=== PATIENT | female | born 1945 | race Caucasian/White ===

== ENCOUNTER → 2019-04-16 10:20 | Outpatient (CLI) | payer MEDICARE, SELFPAY ==
[2019-04-16 10:53] LABS: International Normalized Ratio 3.2; Prothrombin Time (Protime)PT. 33.2 SECONDS (11.7-14.9)
== END ==
PROVIDERS: Family Provider Family Medicine; PCP Family Medicine; Referring Provider Family Medicine; Visit Provider Family Medicine
DX: Z51.81 Encounter for therapeutic drug level monitoring (principal); Z79.01 Long term (current) use of anticoagulants
CPT/HCPCS: 85610

== ENCOUNTER 2023-11-18 11:47 | Observation (INO) | payer MEDICARE, SELFPAY ==
[2023-11-18] VITALS (18 sets, daily range): BP systolic 135–169; BP diastolic 56–67; PULSE 57–77; RESP 10–61; TEMP 36.3–36.7; O2SAT 96–100; BMI 36.9; BMI 36.7
--- NOTE | 2023-11-18 12:02 | EDS_ITS ---
HPI History of Present Illness Chief Complaint: Chest Pain Informant: patient Onset/Context/Timing Onset: Weeks (2) Activity at onset: gradual Timing: Waxes and wanes Quality: Positive for Heaviness Location: Substernal, Right Parasternal, Left Parasternal, Right Chest and Left Chest Worsened By: Coughing Relieved By: Nothing Associated Symptoms: Positive for Cough; Negative for Nausea, Vomiting, Diaphoresis, Dyspnea, Fever, Lightheadedness, Acid Reflux or Palpitations Narrative Narrative: Patient presents with chest pain that has been waxing and waning over the past 2 weeks. Patient states it came on gradually. Patient describes it as a heaviness. Patient states that has been diffuse across her chest but is mainly over the substernal area. Patient states it is worse with coughing. Patient states nothing seems to help with it. Patient denies any sputum production. Patient denies any nausea or vomiting. Patient denies any shortness of breath or diaphoresis. Patient is on Coumadin for DVT. CVD Risk Factors: Positive for Hypertension and Diabetes; Negative for Hypercholesterolemia, Family History 1' </=55 or Smoking PE Risk Factors: Positive for Prior DVT or PE; Negative for Recent Travel/Surgery, Recent Immobilization, Cancer or OCP + Smoking + >/=35 PFSH PFS Medical History (Updated 11/18/23 @ 21:[address] Johnathon Hopkins MD) DVT (deep venous thrombosis) Diabetes mellitus type 1 M?ni?re's disease Home Medications ?Medication ?Instructions ?Recorded ?Last Taken ?Type aspirin 81 mg tablet,delayed 81 mg PO DAILY 11/18/23 11/18/23 History release (Adult Aspirin Regimen) betamethasone dipropionate 0.05 % 1 applic topical BID 11/18/23 11/17/23 History lotion gabapentin 300 mg capsule 300 mg PO Q12H 11/18/23 11/18/23 History glipizide 10 mg tablet, extended 10 mg PO DAILY 11/18/23 11/17/23 History release 24 hr pantoprazole 40 mg tablet,delayed 40 mg PO DAILY 11/18/23 11/17/23 History release simvastatin 40 mg tablet 40 mg PO QHS 11/18/23 11/17/23 History triamterene 37.5 0.5 tab PO DAILY 11/18/23 11/17/23 History mg-hydrochlorothiazide 25 mg tablet warfarin 1 mg tablet 2 mg PO MOWEFR 11/18/23 11/16/23 History warfarin 1 mg tablet (Jantoven) 1 mg PO SUTUTHSA 11/18/23 11/17/23 History Allergy/AdvReac Type Severity Reaction Status Date / Time No Known Allergies Allergy Verified 11/18/23 11:48 Family History Other CVA (cerebral vascular accident) Family History other Surgical History Hx of hysterectomy Social History Smoking Status: Never smoker ROS ROS ED Constitutional Constitutional ED: Denies chills or fever(s) Eyes Eyes: Denies blurry vision or change in vision ENT ENT ED: Denies rhinorrhea or sore throat Cardiovascular Cardiovascular: Reports chest pain; Denies palpitations Respiratory/Chest Respiratory/Chest: Reports cough; Denies dyspnea Gastrointestinal Gastrointestinal: Denies nausea or vomiting Genitourinary Genitourinary ED: Denies dysuria or hematuria Musculoskeletal Musculoskeletal: Denies back pain or neck pain Integumentary Denies abscess or rash Neurologic Neurologic: Denies headache(s) or weakness Allergic/Immunologic Allergic/Immunologic ED: Denies mouth swelling or urticaria EXAM Physical Exam Const Vital Signs: 11/18/23 11:48 11/18/23 13:23 11/18/23 13:26 Temperature 97.4 F L Temperature Source Temporal Pulse Rate 77 Respiratory Rate 18 Respiratory Effort Normal Non-Labored Blood Pressure 144/62 H Blood Pressure Mean 89 Pulse Ox 99 96 Oxygen Delivery Method Room Air Room Air 11/18/23 13:48 11/18/23 14:30 11/18/23 14:45 Temperature 97.9 F Temperature Source Temporal Pulse Rate 63 60 Respiratory Rate 61 H 16 Respiratory Effort Blood Pressure 144/60 H 135/62 H 155/66 H Blood Pressure Mean 88 83 90 Pulse Ox 97 99 Oxygen Delivery Method Room Air 11/18/23 15:15 11/18/23 15:30 11/18/23 15:45 Temperature Temperature Source Pulse Rate 61 60 59 L Respiratory Rate 15 11 L 13 Respiratory Effort Blood Pressure Blood Pressure Mean Pulse Ox 100 99 100 Oxygen Delivery Method 11/18/23 15:50 11/18/23 16:00 11/18/23 16:15 Temperature Temperature Source Pulse Rate 65 57 L 62 Respiratory Rate 12 10 L 16 Respiratory Effort Blood Pressure 151/61 H 148/59 H 141/56 H Blood Pressure Mean 88 81 79 Pulse Ox 98 98 96 Oxygen Delivery Method 11/18/23 16:30 11/18/23 16:45 11/18/23 17:00 Temperature Temperature Source Pulse Rate 66 Respiratory Rate 13 Respiratory Effort Blood Pressure 144/60 H 144/63 H 166/64 H Blood Pressure Mean 83 82 93 Pulse Ox 97 Oxygen Delivery Method 11/18/23 17:08 Temperature 98.1 F Temperature Source Pulse Rate 73 Respiratory Rate 15 Respiratory Effort Blood Pressure 166/64 H Blood Pressure Mean 98 Pulse Ox 97 Oxygen Delivery Method Positive well nourished and well developed General Appearance ED: well developed and NAD HEENT Reports moist mucous membranes Neck supple and no JVD Resp normal respiratory effort and clear to auscultation bilaterally Cardio regular rate and regular rhythm GI soft to palpation, non-tender and non-distended Extremity General Extremety ED: Yes edema; Negative for tenderness General Extremity: edema bilateral lower extremity Details: mild Neuro oriented x3, CN's II-XII intact bilaterally and no sensory deficits noted Sensorium / Orientation: awake and alert Motor Exam: strength 5/5 throughout Psych mental status grossly normal Heart Score History: Slightly/Non-Suspicious ECG: Nonspecific Repolarization Age: >/= 65 years Risk Factors: 1 or 2 Risk Factors Troponin: </= Normal Limit Score: 4 MDM MDM MDM Narrative Medical decision making narrative: Differential diagnosis includes cardiac dysrhythmia, cardiac ischemia, pneumonia, pneumothorax, electrolyte abnormality, GERD, musculoskeletal pain, and anxiety. EKG will be obtained to assess for cardiac dysrhythmia and cardiac ischemia. Chest x-ray will be obtained to assess for pneumonia and pneumothorax. CBC will be obtained to assess for leukocytosis and anemia. Basic metabolic profile will be obtained to assess for electrolyte abnormality and renal function. High-sensitivity troponin will be obtained to assess for cardiac ischemia. Urinalysis will be obtained to assess for urinary tract infe ction and hematuria. Lab Data Attestation: I reviewed the patient's lab results. Lab results narrative: CBC was reviewed and was within normal limits. Basic metabolic profile was reviewed. Potassium was slightly low at 3.2. The remainder is within normal limits. PT was INR and PTT were reviewed. Pro time was 26.8 and INR is 2.5. PTT was normal at 34.7. High-sensitivity troponin was reviewed and was normal at 8. 2-hour repeat high-sensitivity troponin was reviewed and was also normal at 8. Labs: Laboratory Results - last 24 hr 11/18/23 11/18/23 12:50 15:50 WBC 9.0 RBC 4.78 Hgb 14.1 Hct 43.9 MCV 91.8 MCH 29.5 MCHC 32.1 RDW Std Deviation 46.0 H RDW Coeff of Giancarlo 13.6 Plt Count 258 MPV 11.0 Immature Gran % (Auto) 0.800 Neut % (Auto) 64.6 Lymph % (Auto) 22.0 [place] % (Auto) 11.0 H Eos % (Auto) 0.9 Baso % (Auto) 0.7 Absolute Neuts (auto) 5.8 Absolute Lymphs (auto) 1.97 Nucleated RBC % 0 PT 26.8 H INR 2.5 APTT 34.7 Sodium 142 Potassium 3.2 L Chloride 103 Carbon Dioxide 33.0 H Anion Gap 6 BUN 15 Creatinine 0.80 Estim Creat Clear Calc 62.02 Est GFR (MDRD) Af Amer 90 Est GFR (MDRD) Non-Af 74 BUN/Creatinine Ratio 18.8 Glucose 95 Calcium 9.2 Troponin I High Sens 8 8 Radiography Chest X-Ray - ED: 1 View, Read by ED Physician, Read by Radiologist and No Acute Disease Diagnostic Testing: Clinical Impression(s) from Imaging Studies Chest X-Ray 11/18/23 12:45 IMPRESSION: No radiographic evidence of acute cardiopulmonary disease. Electronically Signed: Macey Daugherty MD at 13:07 EDT , EKG Initial EKG: Attestation: I personally reviewed and interpreted this EKG as follows: Interpretation: Sinus Bradycardia (59) and RBBB Comments: EKG was obtained. On my independent interpretation, it shows sinus bradycardia with a rate of 59. [place] interval was normal at 160 ms. QRS interval slightly prolonged at 144 ms. QTc interval was normal at 453 ms. [place] was normal. There is a right bundle branch block pattern noted. There are no acute ST or T wave changes noted. Prior EKG tracings: not available for review Prior: No Prior Management Discussion w/another healthcare provider: Hospitalist Treatment and Re-Evaluation :: Patient was given aspirin here. Patient was feeling better on reevaluation. Patient was advised of her findings. Patient was given a dose of oral potassium here. Patient has a HEART score of 4. I recommended admission to the hospital for observation for further evaluation. Patient is agreeable with this. Patient states she does not remember ever having a stress test in the past. Case was discussed with the hospitalist. He will admit the patient to his service for observation. Patient understood and was agreeable with the plan. All questions were answered. Discharge Plan Dx/Rx/DC Orders Clinical Impression: Chest pain of uncertain etiology, Hypertension, Hypokalemia Disposition Disposition: Acute Care Hospital [facility] Discharge Date/Time: 11/18/23 17:46
--- NOTE | 2023-11-18 12:44 | EKG12_ITS ---
Test Reason : CP Blood Pressure : / mmHG Vent. Rate : 059 BPM Atrial Rate : 059 BPM P-R Int : 160 ms QRS Dur : 144 ms QT Int : 458 ms P-R-T Axes : 058 070 010 degrees QTc Int : 453 ms Sinus bradycardia Right bundle branch block Abnormal ECG Confirmed by Jaydon Kim ([id number]), editor map MARIBEL PÉREZ ([id number]) on 11/21/2023 8:15:40 AM Referred By: BILL/KAVYA Confirmed By:Jaydon Kim
--- NOTE | 2023-11-18 12:45 | RAD_ITS ---
INDICATION: chest pain EXAMINATION/TECHNIQUE: X-RAY - XR Chest 1 View COMPARISON: No relevant prior comparison study available FINDINGS: LINES/DEVICES: None. LUNGS: No consolidation, edema or effusion. No pneumothorax. MEDIASTINUM AND CARDIOVASCULAR STRUCTURES: Cardiac silhouette not enlarged. Central airways and mediastinal contour are unremarkable. BONES AND SOFT TISSUES: There are degenerative changes of the right acromioclavicular joint and thoracic spine. RAD/Chest 1 View (Portable) IMPRESSION: No radiographic evidence of acute cardiopulmonary disease. Electronically Signed: Macey Daugherty MD at 13:07 EDT ,
[2023-11-18 13:08] LABS: International Normalized Ratio 2.5; Partial Thromboplast Time 34.7 Seconds (24.1-36.2); Prothrombin Time (Protime)PT. 26.8 SECONDS (11.7-14.9)
[2023-11-18] MEDS: Aspirin 81 MG TAB.CHEW 324 MG PO (13:11)
[2023-11-18 13:51] LABS: Absolute Lymphocyte Count 1.97 X10^3/uL (0.83-4.51); Absolute Neutrophil Count 5.8 X10^3/uL (2.0-7.7); Basophil# 0.06 X10^3/uL; Basophil% 0.7 % (0-1); Eosinophil# 0.08 X10^3/uL; Eosinophils% 0.9 % (0-5); Hematocrit 43.9 % (37-47); Hemoglobin 14.1 g/dL (12.0-15.0); Lymphocyte # 1.97 X10^3/ul (0.83-4.51); Mean Corp Hgb Conc 32.1 g/dL (32-36); Mean Corpuscular Hgb 29.5 pg (27.0-32.0); Mean Corpuscular Volume 91.8 fL (81-99); Monocyte# 0.99 X10^3/uL; NRBC Flagged by Analyzer 0 % (0-5); Neutrophil % 64.6 % (47-70); Platelet Count 258 K/mm3 (150-450); RBC Distribution Width CV 13.6 % (11.6-14.6); Red Blood Count 4.78 M/mm3 (4.2-5.4)
[2023-11-18 14:09] LABS: Anion Gap 6 (5-15); BUN 15 mg/dL (7-18); BUN/Creat Ratio 18.8 RATIO (10-20); Calcium,Total 9.2 mg/dL (8.5-10.1); Chloride 103 mmol/L (98-107); EST Glomerular Filtration Rate 74 mL/min (>60); Est Glom Filt Rate - Afr Amer 90 mL/min (>60); Estimated Creatinine Clearance 62.02 ml/min; Glucose 95 mg/dL (74-106); Potassium 3.2 mmol/L (3.5-5.1); Sodium Level 142 mmol/L (136-145); Troponin-I HS (w/2H Reflex) 8 pg/mL (3.0-54.0)
[2023-11-18 15:43] LABS: Reflex Troponin-HS? (from REC) Y
[2023-11-18 16:18] LABS: Troponin-I HS 8 pg/mL (3.0-54.0)
--- NOTE | 2023-11-18 16:59 | PCM.HP.STD ---
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 Her chest heaviness is at the left chest. It was nonradiating. Intensity of pain is 7 out of 10. The pain is constant. She denies any nausea or vomiting. She is a little short of breath. Of note patient reports coughing a lot about 2 weeks ago. Both her and herself were coughing. She went to urgent care and she was given prednisone. Also at that time she had pain of her right ear. [facility] Medical History (Updated 11/18/23 @ 21:[address] Johnathon Hopkins MD) DVT (deep venous thrombosis) Diabetes mellitus type 1 M?ni?re's disease Home Medications ?Medication ?Instructions ?Recorded ?Last Taken ?Type aspirin 81 mg tablet,delayed 81 mg PO DAILY 11/18/23 11/18/23 History release (Adult Aspirin Regimen) betamethasone dipropionate 0.05 % 1 applic topical BID 11/18/23 11/17/23 History lotion gabapentin 300 mg capsule 300 mg PO Q12H 11/18/23 11/18/23 History glipizide 10 mg tablet, extended 10 mg PO DAILY 11/18/23 11/17/23 History release 24 hr pantoprazole 40 mg tablet,delayed 40 mg PO DAILY 11/18/23 11/17/23 History release simvastatin 40 mg tablet 40 mg PO QHS 11/18/23 11/17/23 History triamterene 37.5 0.5 tab PO DAILY 11/18/23 11/17/23 History mg-hydrochlorothiazide 25 mg tablet warfarin 1 mg tablet 2 mg PO MOWEFR 11/18/23 11/16/23 History warfarin 1 mg tablet (Jantoven) 1 mg PO SUTUTHSA 11/18/23 11/17/23 History Allergy/AdvReac Type Severity Reaction Status Date / Time No Known Allergies Allergy Verified 11/18/23 11:48 Family History Other CVA (cerebral vascular accident) Family History other other (Her father in his 90s) Surgical History Hx of hysterectomy Social History Smoking Status: Never smoker ROS ROS Narrative Pertinent positives and pertinent negatives as noted in HPI. All other systems were reviewed and are negative Vital Signs Vital Signs Vital Signs: 11/18/23 11:48 11/18/23 13:23 11/18/23 13:26 Temperature 97.4 F L Temperature Source Temporal Pulse Rate 77 Respiratory Rate 18 Respiratory Effort Normal Non-Labored Blood Pressure 144/62 H Blood Pressure Mean 89 Pulse Ox 99 96 Oxygen Delivery Method Room Air Room Air 11/18/23 13:48 11/18/23 14:30 11/18/23 14:45 Temperature 97.9 F Temperature Source Temporal Pulse Rate 63 60 Respiratory Rate 61 H 16 Respiratory Effort Blood Pressure 144/60 H 135/62 H 155/66 H Blood Pressure Mean 88 83 90 Pulse Ox 97 99 Oxygen Delivery Method Room Air 11/18/23 15:15 11/18/23 15:30 11/18/23 15:45 Temperature Temperature Source Pulse Rate 61 60 59 L Respiratory Rate 15 11 L 13 Respiratory Effort Blood Pressure Blood Pressure Mean Pulse Ox 100 99 100 Oxygen Delivery Method 11/18/23 15:50 Temperature Temperature Source Pulse Rate 65 Respiratory Rate 12 Respiratory Effort Blood Pressure 151/61 H Blood Pressure Mean 88 Pulse Ox 98 Oxygen Delivery Method Weight Weight: 91.626 kg Body Mass Index (BMI) 36.9 Physical Exam Narrative Physical exam: General: Well-nourished, well-developed. Head: Normocephalic, atraumatic, no tenderness Eyes: Vision is grossly intact. EOMI ENT, no trauma, moist mucous membranes, no rhinorrhea Neck: Nontender, No thyromegaly. CVS: Regular rate and rhythm. S1-S2 present. No murmur, gallop or rub. Respiratory : clear to auscultation bilaterally, chest wall nontender Abdomen: Soft, nontender, nondistended, normal bowel sounds, no masses : Deferred Back: Nontender, no CVA tenderness, no midline spinal tenderness, deformities, step-offs Extremities: Nontender full range of motion, no trauma Skin: Normal color, no trauma, abrasions Neuro: Alert, oriented, cranial nerves II through XII grossly intact. Psychiatry: Normal mood. Normal affect. Not depressed. Not anxious. Results Lab / Micro Data 11/18/23 12:50 11/18/23 12:50 Labs: Laboratory Results - last 24 hr 11/18/23 12:50: WBC 9.0, RBC 4.78, Hgb 14.1, Hct 43.9, MCV 91.8, MCH 29.5, MCHC 32.1, RDW Std Deviation 46.0 H, RDW Coeff of Giancarlo 13.6, Plt Count 258, MPV 11.0, Immature Gran % (Auto) 0.800, Neut % (Auto) 64.6, Lymph % (Auto) 22.0, [place] % (Auto) 11.0 H, Eos % (Auto) 0.9, Baso % (Auto) 0.7, Absolute Neuts (auto) 5.8, Absolute Lymphs (auto) 1.97, Nucleated RBC % 0, PT 26.8 H, INR 2.5, APTT 34.7, Sodium 142, Potassium 3.2 L, Chloride 103, Carbon Dioxide 33.0 H, Anion Gap 6, BUN 15, Creatinine 0.80, Estim Creat Clear Calc 62.02, Est GFR (MDRD) Af Amer 90, Est GFR (MDRD) Non-Af 74, BUN/Creatinine Ratio 18.8, Glucose 95, Calcium 9.2, Troponin I High Sens 8 11/18/23 15:50: Troponin I High Sens 8 Imaging Radiology Impression Chest X-Ray 11/18/23 12:45 IMPRESSION: No radiographic evidence of acute cardiopulmonary disease. 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 Chest pain Place on a monitored bed at a progressive care unit Actual CXR image was independently visualized. No acute cardiopulmonary process was noted. Actual EKG tracing was independently visualized. EKG tracing showed right bundle branch block Daily aspirin ordered. Lipitor ordered. Home Coumadin continued. Morphine as needed for pain ordered We will check lipid panel. Serial cardiac enzymes negative, trend. Chemical stress test in the AM if the cardiac enzymes are negative. Of note patient is not a candidate for treadmill stress test as patient has arthritis in multiple joints and received gel injections and steroid injections. Hypertension Blood pressure is not within goal Home blood pressure medication continued. As needed hydralazine ordered. Trend blood pressure and adjust blood pressure medications. Hypokalemia Replace Trend BMP. Diabetes melitis and not on long-term insulin. Blood glucose is stable. On home glipizide. Will hold at this time. Continue correction scale ordered in the setting of patient being n.p.o. factors. Check A1c. History of DVTs On chronic continue. INR stable. Trend INR. DVT prophylaxis: Coumadin as above. Time spent in the patient's overall evaluation,decision-making process, review of diagnostic data, adjustment of management, discussion with other providers, nursing and ancillary staff involved in patient's care documentation, 70 minutes. Advance care planning: Discussed with patient and family advanced directives as well as CODE STATUS. Explained various CODE STATUS: FULL CODE, DNR CCA, DNR CCA with no intubation, and DNR CC- and what each meant. Patient elected to be a full code with CPR and intubation if warranted. Order was placed. Patient is surrogate decision maker time spent on discussion 16 minutes.
[2023-11-18] MEDS: Potassium Chloride Oral Tablet 20 MEQ 40 MEQ PO (17:06)
--- NOTE | 2023-11-18 18:25 | EKG12_ITS ---
Test Reason : ADMISSION EKG Blood Pressure : / mmHG Vent. Rate : 060 BPM Atrial Rate : 060 BPM P-R Int : 158 ms QRS Dur : 132 ms QT Int : 442 ms P-R-T Axes : 044 066 014 degrees QTc Int : 442 ms Sinus rhythm with marked sinus arrhythmia Right bundle branch block Abnormal ECG When compared with ECG of 18-NOV-2023 12:03, MANUAL COMPARISON REQUIRED, DATA IS UNCONFIRMED Confirmed by Jaydon Kim ([id number]), purchasing expeditor NGUYEN BRYAN ([id number]) on 11/21/2023 10:40:11 AM Referred By: Confirmed By:Jaydon Kim
[2023-11-18] MEDS: Jantoven 2 MG Tablet PO (19:03)
[2023-11-18 19:30] LABS: Troponin-I HS 10 pg/mL (3.0-54.0)
[2023-11-18] MEDS: Gabapentin 300 MG Capsule PO (20:45)
[2023-11-18] MEDS: Atorvastatin Calcium 20 MG Tablet PO (20:47)
[2023-11-18 23:56] LABS: Bedside Glucose 136 mg/dL (74-106)
[2023-11-19 02:45] VITALS: BP 118/65; PULSE 61; RESP 20; TEMP 36.6; O2SAT 95
[2023-11-19 05:42] LABS: Absolute Lymphocyte Count 1.96 X10^3/uL (0.83-4.51); Absolute Neutrophil Count 4.3 X10^3/uL (2.0-7.7); Basophil# 0.05 X10^3/uL; Basophil% 0.7 % (0-1); Eosinophil# 0.14 X10^3/uL; Eosinophils% 1.9 % (0-5); Hematocrit 39.2 % (37-47); Hemoglobin 12.7 g/dL (12.0-15.0); Lymphocyte # 1.96 X10^3/ul (0.83-4.51); Lymphocyte % 26.3 % (19-41); Mean Corp Hgb Conc 32.4 g/dL (32-36); Mean Corpuscular Hgb 29.9 pg (27.0-32.0); Mean Corpuscular Volume 92.2 fL (81-99); Mean Platelet Vol. 10.4 fl (6.2-12.0); Monocyte# 0.92 X10^3/uL; Monocyte% 12.3 % (0-10); NRBC Flagged by Analyzer 0 % (0-5); Neutrophil # 4.33 X10^3/uL (2.7-7.7); Neutrophil % 58.1 % (47-70); Platelet Count 226 K/mm3 (150-450); RBC Distribution Width CV 13.9 % (11.6-14.6); Red Blood Count 4.25 M/mm3 (4.2-5.4); White Blood Count 7.5 K/mm3 (4.4-11.0)
[2023-11-19 05:55] LABS: International Normalized Ratio 2.4; Prothrombin Time (Protime)PT. 25.9 SECONDS (11.7-14.9)
--- NOTE | 2023-11-19 05:55 | ECHOD_ITS ---
Reason For Study: Chest pain Procedure This was a 2D Doppler, Color Flow transthoracic echocardiogram. Exam performed portable in patient room. Left Ventricle Normal LV size. Apical false tendon noted. The left ventricular ejection fraction is 65 %. Stage 1 diastolic dysfunction. No regional wall motion abnormalities noted. Right Ventricle Normal RV size. Normal systolic function. Atria Normal left atrium. Normal right atrium. Hypermobile atrial septum. Bubble contrast study negative for right to left interatrial shunt. Mitral Valve Normal mitral valve. Tricuspid Valve Normal tricuspid valve. Aortic Valve Trisinus/trileaflet aortic valve. Mild focal aortic valve calcification. Mild (1+) aortic valve insufficiency. Medication Performed a rapid injection of agitated mix of 9 cc saline and 1cc air to assess for atrial septal defect. MMode/2D Measurements & Calculations LVIDd: 3.8 cm IVSd: 1.0 cm LVOT diam: 2.1 cm LVIDs: 1.9 cm LVPWd: 1.1 cm LVOT area: 3.5 cm2 RVDd: 3.3 cm FS: 51.2 % Ao root diam: 2.8 cm LAV(MOD-bp): 29.0 ml LVAd ap4: 19.9 cm2 LAV(MOD-bp) Indexed: 15.2 ml/m2 LVLd ap4: 6.9 cm LAV(MOD-sp2): 20.9 ml EDV(MOD-sp4): 51.0 ml LAV(MOD-sp4): 36.2 ml EDV(sp4-el): 49.1 ml LVAs ap4: 12.0 cm2 LVLs ap4: 6.1 cm ESV(MOD-sp4): 21.8 ml ESV(sp4-el): 19.8 ml EF(MOD-sp4): 57.2 % EF(sp4-el): 59.5 % SV(MOD-sp4): 29.2 ml SV(sp4-el): 29.2 ml LA A4 area: 14.5 cm2 LA dimension(2D): 3.0 cm TAPSE: 2.3 cm RA A4 area: 12.1 cm2 Time Measurements MV dec time: 0.23 sec Doppler Measurements & Calculations MV E max amauri: 67.9 cm/sec Lat Peak E' Amauri: 7.4 cm/sec Med Peak E' Amauri: 7.9 cm/sec MV A max amauri: 80.9 cm/sec E/E' lat: 9.2 E/E' med: 8.6 MV E/A: 0.84 Ao V2 max: 184.1 cm/sec AI max amauri: 331.0 cm/sec MV dec slope: 295.8 cm/sec2 Ao max P.6 mmHg AI max P.8 mmHg Ao V2 mean: 121.7 cm/sec Ao mean P.0 mmHg AI dec slope: 82.1 cm/sec2 Ao V2 VTI: 38.0 cm AI P1/2t: 1180 msec AV (velocity ratio): 0.78 TING(I,D): 2.7 cm2 TING(V,D): 2.7 cm2 LV V1 max: 145.3 cm/sec SV(LVOT): 103.4 ml PA V2 max: 111.2 cm/sec LV V1 max P.4 mmHg LV V1 mean P.4 mmHg LV V1 mean: 99.1 cm/sec LV V1 VTI: 29.8 cm ECHO/Echo Complete Interpretation Summary Normal LV size. Hypermobile atrial septum. Apical false tendon noted. The left ventricular ejection fraction is 65 %. Stage 1 diastolic dysfunction. Bubble contrast study negative for right to left interatrial shunt. Ordering Physician: Johnathon Hopkins Referring Physician: America Hopper Performed By: Kira Luke RDCS
[2023-11-19 05:58] LABS: Anion Gap 7 (5-15); BUN 14 mg/dL (7-18); BUN/Creat Ratio 19.3 RATIO (10-20); Calcium,Total 8.7 mg/dL (8.5-10.1); Chloride 106 mmol/L (98-107); Cholesterol 171 mg/dL (200); Creatinine, Serum 0.73 mg/dL (0.55-1.02); EST Glomerular Filtration Rate 83 mL/min (>60); Est Glom Filt Rate - Afr Amer 100 mL/min (>60); Estimated Creatinine Clearance 61.82 ml/min; Glucose 114 mg/dL (74-106); High Density Lipoprotein 44 mg/dL; Potassium 3.9 mmol/L (3.5-5.1); Sodium Level 141 mmol/L (136-145); Triglycerides 124 mg/dL; Very Low Density Lipoprotein 25 mg/dL (5-40)
[2023-11-19 07:51] LABS: Hemoglobin A1c 6.9 % (3.8-5.6)
--- NOTE | 2023-11-19 08:25 | PN.HOSP_ITS ---
Reason for Visit Reason for Visit: Diagnoses Hypokalemia (11/18/23) Essential (primary) hypertension (11/18/23) Chest pain, unspecified (11/18/23) Subjective Subjective Over the past couple weeks has had upper respiratory infection with an ear infection. Has been coughing. Has been having chest pain particular when she takes a deep breath or coughs. Objective Data Objective Data Vital Signs: Vital Signs Temp Pulse Resp BP Pulse Ox O2 Del Method 36.6 C 61 20 H 118/65 95 Room Air 11/19/23 02:45 11/19/23 02:45 11/19/23 02:45 11/19/23 02:45 11/19/23 02:45 11/19/23 07:51 Oxygen Delivery Method Room Air Weight: 91.1 kg Body Mass Index (BMI) 36.7 Intake & Output: Intake and Output for Last 24 Hours 11/17/23 11/18/23 11/19/23 23:59 23:59 23:59 Intake Total 300 / 300 Balance 300 / 300 Lab / Micro Data 11/19/23 05:22 11/19/23 05:22 Labs: Laboratory Results - last 24 hr 11/18/23 12:50: WBC 9.0, RBC 4.78, Hgb 14.1, Hct 43.9, MCV 91.8, MCH 29.5, MCHC 32.1, RDW Std Deviation 46.0 H, RDW Coeff of Giancarlo 13.6, Plt Count 258, MPV 11.0, Immature Gran % (Auto) 0.800, Neut % (Auto) 64.6, Lymph % (Auto) 22.0, Lagrange % (Auto) 11.0 H, Eos % (Auto) 0.9, Baso % (Auto) 0.7, Absolute Neuts (auto) 5.8, Absolute Lymphs (auto) 1.97, Nucleated RBC % 0, PT 26.8 H, INR 2.5, APTT 34.7, Sodium 142, Potassium 3.2 L, Chloride 103, Carbon Dioxide 33.0 H, Anion Gap 6, BUN 15, Creatinine 0.80, Estim Creat Clear Calc 62.02, Est GFR (MDRD) Af Amer 90, Est GFR (MDRD) Non-Af 74, BUN/Creatinine Ratio 18.8, Glucose 95, Calcium 9.2, Troponin I High Sens 8 11/18/23 15:50: Troponin I High Sens 8 11/18/23 18:59: Troponin I High Sens 10 11/18/23 23:33: POC Glucose 136 H 11/19/23 05:22: WBC 7.5, RBC 4.25, Hgb 12.7, Hct 39.2, MCV 92.2, MCH 29.9, MCHC 32.4, RDW Std Deviation 47.0 H, RDW Coeff of Giancarlo 13.9, Plt Count 226, MPV 10.4, Immature Gran % (Auto) 0.700, Neut % (Auto) 58.1, Lymph % (Auto) 26.3, [place] % (Auto) 12.3 H, Eos % (Auto) 1.9, Baso % (Auto) 0.7, Absolute Neuts (auto) 4.3, Absolute Lymphs (auto) 1.96, Nucleated RBC % 0, PT 25.9 H, INR 2.4, Sodium 141, Potassium 3.9, Chloride 106, Carbon Dioxide 28.0, Anion Gap 7, BUN 14, Creatinine 0.73, Estim Creat Clear Calc 61.82, Est GFR (MDRD) Af Amer 100, Est GFR (MDRD) Non-Af 83, BUN/Creatinine Ratio 19.3, Glucose 114 H, Hemoglobin A1c 6.9 H, Calcium 8.7, Triglycerides 124, Cholesterol 171, LDL Cholesterol 102, VLDL Cholesterol 25, HDL Cholesterol 44 Radiography Diagnostic Testing: Radiology Impression Chest X-Ray 11/18/23 12:45 IMPRESSION: No radiographic evidence of acute cardiopulmonary disease. Electronically Signed: Maecy Daugherty MD at 13:07 EDT , Physical Exam Const alert and no apparent distress Constitutional Narrative: Dry cough. Reproducible anterior chest wall tenderness. Assessment & Plan Assessment/Plan (1) Hypertension: QUALIFIERS: Hypertension type: primary hypertension Qualified Code(s): I10 - Essential (primary) hypertension (2) Chest pain: QUALIFIERS: Chest pain type: unspecified Qualified Code(s): R07.9 - Chest pain, unspecified (3) Hypokalemia: PLAN: Plan Atypical chest pain * Secondary to likely costochondritis due to recent upper respiratory infection. * Troponins negative * stress test negative Upper respiratory infection Overall improving. Supportive management for the cough. I discouraged antibiotics. hypokalemia * improved after replacement Chronic conditions * Hypertension: stable. continue triamterene/HCTZ * Diabetes melitis and not on long-term insulin.Blood glucose is stable. On home glipizide. Will hold at this time. Continue correction scale ordered in the setting of patient being n.p.o. factors. A1c 6.9. 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 INR therapuetic DVT prophylaxis: not indicated as she is already anticoagulated. Full Code.
[2023-11-19 09:23] VITALS: BP 167/69; PULSE 71; RESP 18; TEMP 36.6; O2SAT 98
[2023-11-19] MEDS: Gabapentin 300 MG Capsule PO (09:26)
[2023-11-19] MEDS: Pantoprazole Sodium 40 MG Tablet PO (09:28)
[2023-11-19] MEDS: Triamterene 75MG/Hctz 50MG Tablet 0.25 TABLET PO (09:28)
[2023-11-19] MEDS: Aspirin E.C. 81 MG Tablet PO (09:29)
[2023-11-19 09:33] VITALS: BP 167/69; PULSE 71
[2023-11-19] MEDS: hydrALAZINE 20 MG/ML Vial 5 MG IV (09:33)
--- NOTE | 2023-11-19 10:28 | CASEMGMT ---
Met with pt to complete WESLEY form. WESLEY form explained to pt at this time who voiced understanding and signed form. Original form placed in pt?s chart and copy provided to the pt. Moving forward, once the pt is medically ready for DC, pt states that she feels safe returning home with the support of her and denies further needs. Camille Blue RN CM
[2023-11-19 11:43] LABS: Bedside Glucose 115 mg/dL (74-106)
--- NOTE | 2023-11-19 12:19 | STRESSREP ---
Stress Test Report Pharmacologic myocardial perfusion stress test. 78-year-old lady with a history of chest pain Resting EKG demonstrates sinus rhythm with a rate of 62 and a right bundle branch block. Resting blood pressure is 140/72 mmHg. 0.4 mg of regadenoson was infused per usual protocol followed by rapid intravenous saline flush injection. Continuous EKG monitoring was performed. The maximum heart rate was 89 bpm which was 62% of max impacted heart rate the maximum workload was 1 metabolic equivalent. At rest there were no ST or T wave changes noted to suggest ischemia and at peak infusion nonspecific ST changes were noted which did not meet the criteria for ischemia. No clinical angina is noted. The final blood pressure was 128/68 mmHg. Myocardial perfusion protocol. 12.0 mCi of technetium 99m sestamibi was injected at rest. 0.4 mg of regadenoson was infused per usual protocol. At peak infusion 35.8 mCi of technetium 99m sestamibi was injected stress images were obtained stress and rest images were reconstructed and compared in the short axis vertical long and horizontal long axis. Gated images were also obtained. Perfusion SPECT analysis: Review of the stress images demonstrate normal uptake of tracer noted in all areas of the myocardium. The resting images similar demonstrated normal uptake of tracer noted in all areas of the myocardium. No areas of reversibility are noted to suggest ischemia and no previous infarct is noted. Gated SPECT analysis: The gated ejection fraction is 86%. Conclusion: Normal pharmacologic myocardial perfusion stress test. Preserved ejection fraction.
--- NOTE | 2023-11-19 13:02 | DS.PCM_ITS ---
Providers Date of Admission: 11/18/23 Primary Care Physician: AMERICA PACE C[facility]IRER-C Reason For Visit: CHEST PAIN Diagnosis Discharge Diagnosis (1) Hypertension: Status: Chronic Code(s): I10 - Essential (primary) hypertension Qualifiers: Hypertension type: primary hypertension Qualified Code(s): I10 - Essential (primary) hypertension (2) Chest pain: Status: Acute Code(s): R07.9 - Chest pain, unspecified Qualifiers: Chest pain type: unspecified Qualified Code(s): R07.9 - Chest pain, unspecified (3) Hypokalemia: Status: Acute Code(s): E87.6 - Hypokalemia Plan Atypical chest pain * Secondary to likely costochondritis due to recent upper respiratory infection. * Troponins negative * stress test negative Upper respiratory infection Overall improving. Supportive management for the cough. I discouraged antibiotics. hypokalemia * improved after replacement Chronic conditions * Hypertension: stable. continue triamterene/HCTZ * Diabetes melitis and not on long-term insulin.Blood glucose is stable. On home glipizide. Will hold at this time. Continue correction scale ordered in the setting of patient being n.p.o. factors. A1c 6.9. 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 INR therapuetic DVT prophylaxis: not indicated as she is already anticoagulated. Full Code. Medications at Discharge Home Medications aspirin 81 mg tablet,delayed release (Adult Aspirin Regimen) 81 mg PO DAILY 11/18/23 betamethasone dipropionate 0.05 % lotion 1 applic topical BID 11/18/23 gabapentin 300 mg capsule 300 mg PO Q12H 11/18/23 glipizide 10 mg tablet, extended release 24 hr 10 mg PO DAILY 11/18/23 pantoprazole 40 mg tablet,delayed release 40 mg PO DAILY 11/18/23 simvastatin 40 mg tablet 40 mg PO QHS 11/18/23 triamterene 37.5 mg-hydrochlorothiazide 25 mg tablet 0.5 tab PO DAILY 11/18/23 warfarin 1 mg tablet 2 mg PO MOWEFR 11/18/23 warfarin 1 mg tablet (Jantoven) 1 mg PO SUTUTHSA 11/18/23 acetaminophen 325 mg tablet 1,000 mg (3.0769 x 325 mg) PO Q8 PRN Pain 1-10 Or Fever>100.7 #0 tabs 11/19/23 Hospital Course Procedures Nuclear stress test Summary of Care Provided Hospital Course: Patient presents with anterior midsternal chest pain. Troponins and stress test were negative. Exam is consistent with costochondritis. Likely exacerbated due to upper respiratory infection with a cough. Weight / BMI Weight Weight: 91.1 kg Body Mass Index (BMI) 36.7 ABG / Lab / Microbiology Data 11/19/23 05:22 11/19/23 05:22 Laboratory: Laboratory Results - last 24 hr 11/18/23 12:50: WBC 9.0, RBC 4.78, Hgb 14.1, Hct 43.9, MCV 91.8, MCH 29.5, MCHC 32.1, RDW Std Deviation 46.0 H, RDW Coeff of Giancarlo 13.6, Plt Count 258, MPV 11.0, Immature Gran % (Auto) 0.800, Neut % (Auto) 64.6, Lymph % (Auto) 22.0, Mathews % (Auto) 11.0 H, Eos % (Auto) 0.9, Baso % (Auto) 0.7, Absolute Neuts (auto) 5.8, Absolute Lymphs (auto) 1.97, Nucleated RBC % 0, PT 26.8 H, INR 2.5, APTT 34.7, Sodium 142, Potassium 3.2 L, Chloride 103, Carbon Dioxide 33.0 H, Anion Gap 6, BUN 15, Creatinine 0.80, Estim Creat Clear Calc 62.02, Est GFR (MDRD) Af Amer 90, Est GFR (MDRD) Non-Af 74, BUN/Creatinine Ratio 18.8, Glucose 95, Calcium 9.2, Troponin I High Sens 8 11/18/23 15:50: Troponin I High Sens 8 11/18/23 18:59: Troponin I High Sens 10 11/18/23 23:33: POC Glucose 136 H 11/19/23 05:22: WBC 7.5, RBC 4.25, Hgb 12.7, Hct 39.2, MCV 92.2, MCH 29.9, MCHC 32.4, RDW Std Deviation 47.0 H, RDW Coeff of Giancarlo 13.9, Plt Count 226, MPV 10.4, Immature Gran % (Auto) 0.700, Neut % (Auto) 58.1, Lymph % (Auto) 26.3, Mathews % (Auto) 12.3 H, Eos % (Auto) 1.9, Baso % (Auto) 0.7, Absolute Neuts (auto) 4.3, Absolute Lymphs (auto) 1.96, Nucleated RBC % 0, PT 25.9 H, INR 2.4, Sodium 141, Potassium 3.9, Chloride 106, Carbon Dioxide 28.0, Anion Gap 7, BUN 14, Creatinine 0.73, Estim Creat Clear Calc 61.82, Est GFR (MDRD) Af Amer 100, Est GFR (MDRD) Non-Af 83, BUN/Creatinine Ratio 19.3, Glucose 114 H, Hemoglobin A1c 6.9 H, Calcium 8.7, Triglycerides 124, Cholesterol 171, LDL Cholesterol 102, VLDL Cholesterol 25, HDL Cholesterol 44 11/19/23 11:26: POC Glucose 115 H Radiography Diagnostic Testing: Radiology Impression Chest X-Ray 11/18/23 12:45 IMPRESSION: No radiographic evidence of acute cardiopulmonary disease. Electronically Signed: Macey Daugherty MD at 13:07 EDT , Echocardiogram 11/19/23 05:55 Interpretation Summary Normal LV size. Hypermobile atrial septum. Apical false tendon noted. The left ventricular ejection fraction is 65 %. Stage 1 diastolic dysfunction. Bubble contrast study negative for right to left interatrial shunt. Ordering Physician: Johnathon Hopkins Referring Physician: America Pace Performed By: Kira Luke RDCS D/C Instructions Discharge Diet: No restrictions Meaningful Use Info Meaningful Use Meaningful Use Diagnoses (Choose all that apply): None applicable Ischemic Stroke Statin Dosing Therapy Reference: STATIN DOSE THERAPY REFERENCE: * Patients > 75 years receive moderate or high dose statin therapy. * Patients 75 years or YOUNGER should receive HIGH intensity statin dose unless contraindicated. You will be required to document reason for non-treatment if statin daily dose does not meet guidelines. HIGH DOSE STATIN THERAPY DAILY Atorvastatin > than or = to 40 mg Rosuvastatin > than or = to 20 mg Amlodipine + Atorvastatin > than or = to 2.5/40 mg Ezetimibe + Simvastatin 10/80 mg Simvastatin 80mg Discharge Plan Admission Admit Date/Time: 11/18/23 18:07 Primary Reason for Your Visit: Chest pain secondary to costochondritis Attending Provider: John David Primary Care Provider: AMERICA PACE Consulting Providers: Johnathon Hopkins Instructions Additional Instructions / Restrictions: Your stress test here was negative so that indicates that your chest pain is not due to your heart. Likely with the coughing that you have been experiencing with his recent infection. Over time this should improve. If you have a worsening chest pain or chest pain with pain going down your left arm, notify your physician or return to the emergency room. Discharge Orders/Prescriptions Prescriptions: New acetaminophen 325 mg Tablet 1,000 mg PO Q8 PRN (Reason: Pain 1-10 Or Fever>100.7) Qty: 0 0RF Continued triamterene-hydrochlorothiazid 37.5-25 mg tablet 0.5 tab PO DAILY warfarin 1 mg tablet 2 mg PO MOWEFR warfarin [Jantoven] 1 mg tablet 1 mg PO SUTUTHSA aspirin [Adult Aspirin Regimen] 81 mg tablet,delayed release (DR/EC) 81 mg PO DAILY simvastatin 40 mg tablet 40 mg PO QHS pantoprazole 40 mg tablet,delayed release (DR/EC) 40 mg PO DAILY gabapentin 300 mg capsule 300 mg PO Q12H betamethasone dipropionate 0.05 % lotion 1 applic TOPICAL BID Rx Instructions: APPLY TO AFFECTED AREAS TWICE DAILY glipizide 10 mg tablet extended release 24hr 10 mg PO DAILY Referrals / Follow Up: Julian Loyola MD [Non-Staff] - Within 2 Weeks AMERICA PACE NP-C [Primary Care Provider] - Disposition Disposition (needs filled in before D/C Order can be placed): Home, Self Care Charges/Coding Visit Charges Inpatient E&M: 28094 Disch Hosp
== END 2023-11-19 13:05 | disposition home or self-care (01) ==
LOC: ED 17:14 → PCU 17:35
PROVIDERS: Admitting Provider Hospitalist; Emergency Provider Emergency Medicine; PCP Nurse Practitioner
DX: R07.2 Precordial pain (principal); E10.9 Type 1 diabetes mellitus without complications; I10 Essential (primary) hypertension; E87.6 Hypokalemia; J06.9 Acute upper respiratory infection, unspecified; H81.09 Meniere's disease, unspecified ear; Z79.899 Other long term (current) drug therapy; Z86.718 Personal history of other venous thrombosis and embolism; Z79.82 Long term (current) use of aspirin; Z79.84 Long term (current) use of oral hypoglycemic drugs; Z79.01 Long term (current) use of anticoagulants
CPT/HCPCS: 36415; 71045; 78452; 80048; 80061; 82962; 83036; 84484; 85025; 85610; 85730; 93005; 93017; 93306; 96374; 96375; 99221; 99285; A9500; Q9957; A4216; G0378; J2785